=== PATIENT | female | born 1995 | race Caucasian/White ===

== ENCOUNTER 2018-07-25 22:05 | Emergency (ER) | payer BC ==
[2018-07-25] MEDS ORDERED: ONDANSETRON 4 MG/2 ML VIAL IVPUSH ONE ×2 (22:13→22:48)
[2018-07-25] MEDS ORDERED: SODIUM CHLORIDE 1,000 ML IV STA (22:13)
[2018-07-25] MEDS ORDERED: ONDANSETRON 4 MG/2 ML VIAL ONE (22:42)
[2018-07-25] MEDS ORDERED: ACETAMINOPHEN 1000 MG/100 ML VIAL (NON FORMULARY) IVPB ONE (22:42)
--- NOTE | 2018-07-25 22:48 | PDOC ---
History of Present Illness - General Chief Complaint: Seizure Stated Complaint: POSSIBLE SEIZURE Time Seen by Provider: 07/25/18 22:18 History Source: Patient Exam Limitations: No Limitations - History of Present Illness Initial Comments: 07/25/18 22:42 23 yo F with a history of depression presents to the emergency department s/p tonic clonic episode with LOC at approximately 9:20 pm. Per the patient, she was sitting in a high bar stool when she leaned back, cracked her back, accidentally hit her head against the bar top. Afterwards her friend the chanel stated she began having tonic clonic movements and fell off her chair and LOC for less than a minute. Prior to the LOC, the patient felt nauseous but denies the following antecedent symptoms: headache, visual changes, headache, vomiting, chest pain, SOB, and abdominal pain. After the fall, she states she is currently asymptomatic. Denies the following: fever, chills, hx of seizures, suicidal ideation, dysuria, hematuria, and diarrhea. Allergies: NKDA Social: Denies tobacco, alcohol, and substance abuse Meds: zoloft and welbutrin Past History - Past Medical History Allergies/Adverse Reactions: Allergies Allergy/AdvReac Type Severity Reaction Status Date / Time No Known Allergies Allergy Verified 07/25/18 22:45 Review of Systems - Review of Systems Able to Perform ROS?: Yes Is the patient limited [place]ian proficient: No Constitutional: No: Chills, Diaphoresis, Fever HEENTM: No: Eye Pain, Recent change in vision, Ear Pain, Nose Pain, Nose Congestion, Throat Pain Respiratory: No: Cough, Shortness of Breath, SOB with Exertion Cardiac (ROS): No: Chest Pain, Lightheadedness, Palpitations, Syncope, Chest Tightness ABD/GI: Yes: Nausea. No: Constipated, Diarrhea, Poor Fluid Intake, Rectal Bleeding, Vomiting, Tarry Stools : No: Burning, Dysuria, Discharge, Incontinence, Urgency Musculoskeletal: No: Back Pain, Gout, Joint Pain, Neck Pain Integumentary: Yes: Bruising (forehead). No: Erythema, Flushing, Lesions, Lumps Neurological: No: Headache, Numbness, Tingling, Tremors, Dizziness Psychiatric: No: Frequent Crying, Stressors, Change in Appetite Endocrine: No: Excessive Sweating Hematologic/Lymphatic: No: Anemia *Physical Exam - Physical Exam General Appearance: Yes: Nourished, Appropriately Dressed, Thin. No: Apparent Distress HEENT: positive: EOMI, DAVID, Normal ENT Inspection, Normal Voice, Symmetrical, TMs Normal, Pharynx Normal, Hearing Grossly Normal, Other (raised bruises consistent with fall 1x on left forehead and other on right forehead. larger on left. no contusions or depressions throughout the rest of the skull. no tenderness to palpation in the neck midline and no paravertebral tenderness. ). negative: Pale Conjunctivae, Scleral Icterus (R), Scleral Icterus (L), Muffled /Hoarse voice, Pharyngeal Erythema, Tonsillar Exudate, Tonsillar Erythema, Nasal Congestion, Sinus Tenderness, TM Bulging, TM Dull, TM Erythema, Excessive drooling Neck: positive: Trachea midline, Supple. negative: Tender, Lymphadenopathy (R) , Lymphadenopathy (L) Respiratory/Chest: positive: Lungs Clear, Normal Breath Sounds. negative: Chest Tender, Respiratory Distress, Accessory Muscle Use, Crackles, Rales, Rhonchi, Stridor Cardiovascular: positive: Regular Rhythm, Regular Rate, S1, S2. negative: Systolic Murmur Gastrointestinal/Abdominal: positive: Normal Bowel Sounds, Flat, Soft. negative : Tender, Protuberent, Distended, Rebound, Tenderness Lymphatic: negative: Adenopathy Musculoskeletal: positive: Normal Inspection. negative: CVA Tenderness, Decreased Range of Motion Extremity: positive: Normal Capillary Refill, Normal Inspection, Normal Range of Motion. negative: Tender, Swelling, Calf Tenderness Integumentary: positive: Normal Color, Dry, Warm. negative: Swelling, Ecchymosis Neurologic: positive: integration analyst II-XII NML intact, Fully Oriented, Alert, Normal Mood/ Affect, Normal Response, Motor Strength 5/5 ED Treatment Course - LABORATORY CBC & Chemistry Diagram: 07/25/18 22:40 07/25/18 22:38 Medical Decision Making - Medical Decision Making 07/25/18 23:02 23 yo F with a history of depression presents to the emergency department s/p tonic clonic episode with LOC at approximately 9:20 pm. Initial vitals: Initial Vital Signs Temp Pulse Resp BP Pulse Ox 98.1 F 71 19 102/71 97 07/25/18 22:05 07/25/18 22:05 07/25/18 22:05 07/25/18 22:05 07/25/18 22:05 Work up: patient stated she had not had a chance to have her drink before she had the syncopal event. the patient presents to the emergency department with bruises on her forehead, but denies headache and other symptomatic complaints. patient will be given fluids and zofran. the patient did not have slurred speech and neurological exam within normal limits. orders: cbc, cmp, ua, urine culture, ekg, ct head, cxr Laboratory Tests 07/25/18 07/25/18 07/25/18 22:38 22:38 22:40 WBC 10.1 H RBC 4.08 Hgb 13.6 Hct 39.1 MCV 95.9 MCH 33.3 MCHC 34.8 RDW 13.2 Plt Count 207 MPV 8.8 Absolute Neuts (auto) 6.7 Neutrophils % 66.1 Lymphocytes % 24.3 Monocytes % 8.3 Eosinophils % 0.5 Basophils % 0.8 Nucleated RBC % 0 Sodium 137 Potassium 4.2 Chloride 104 Carbon Dioxide 24 Anion Gap 9 BUN 10 Creatinine 0.5 L Creat Clearance w eGFR 151.58 Random Glucose 80 Calcium 8.8 Total Bilirubin 0.2 AST 18 ALT 16 Alkaline Phosphatase 64 Creatine Kinase 73 Troponin I < 0.02 Total Protein 6.9 Albumin 4.1 TSH 2.12 Serum , Qual Negative Urine Color Urine Appearance Urine pH Ur Specific [place] Urine Protein Urine Glucose (UA) Urine Ketones Urine Blood Urine Nitrite Urine Bilirubin Urine Urobilinogen Ur Leukocyte Esterase Opiates Screen Methadone Screen Barbiturate Screen Phencyclidine Screen Ur Amphetamines Screen MDMA (Ecstasy) Screen Benzodiazepines Screen Cocaine Screen U Marijuana (THC) Screen 07/25/18 07/25/18 22:45 22:49 WBC RBC Hgb Hct MCV MCH MCHC RDW Plt Count MPV Absolute Neuts (auto) Neutrophils % Lymphocytes % Monocytes % Eosinophils % Basophils % Nucleated RBC % Sodium Potassium Chloride Carbon Dioxide Anion Gap BUN Creatinine Creat Clearance w eGFR Random Glucose Calcium Total Bilirubin AST ALT Alkaline Phosphatase Creatine Kinase Troponin I Total Protein Albumin TSH Serum , Qual Urine Color Yellow Urine Appearance Cloudy Urine pH 5.5 Ur Specific [place] 1.030 Urine Protein Negative Urine Glucose (UA) Negative Urine Ketones Trace H Urine Blood Negative Urine Nitrite Negative Urine Bilirubin Negative Urine Urobilinogen 1.0 Ur Leukocyte Esterase Negative Opiates Screen Cancelled Methadone Screen Cancelled Barbiturate Screen Cancelled Phencyclidine Screen Cancelled Ur Amphetamines Screen Cancelled MDMA (Ecstasy) Screen Cancelled Benzodiazepines Screen Cancelled Cocaine Screen Cancelled U Marijuana (THC) Screen Cancelled CT head, cervical spine CT, and cxr pending. Patient is signed out to Dr. Miner. 07/25/18 23:51 07/25/18 23:51 07/26/18 00:04 *DC/Admit/Observation/Transfer Diagnosis at time of Disposition: Syncope Qualifiers: Syncope type: unspecified Qualified Code(s): R55 - Syncope and collapse - Discharge Dispostion Disposition: HOME Condition at time of disposition: Fair Decision to Admit order: No - Referrals Referrals: ON STAFF,NOT [Primary Care Provider] - [facility] [Provider Group] Kilo Gonzalez MD [Staff Physician] - Gonzalo Browning DO [Staff Physician] - - Patient Instructions Printed Discharge Instructions: DI for Syncope in Adults (Fainting), DI for Seizure Disorder -- Adult Additional Instructions: you were seen in the emergency department for your syncopal episode that you sustained today. please follow up with the neurologist referred to you in 1 week after discharge for follow up care and management. in addition, your frequent syncopal episodes in the past should be evaluated by the neurologist. please follow up with the boardinghouse keeper in 1 week after discharge for follow up care and management. in addition, you were referred a primary medical physician that you can establish care with. please return to the emergency department if you have worsening symptoms or new concerning symptoms such as loss of consciousness, fevers, neck stiffness, speech slurring, and focal neurological deficits. thank you. - Post Discharge Activity Forms/Work/School Notes: Back to Work
[2018-07-25 22:49] LABS: BASO % 0.8 % (0-2.0); EOS % 0.5 % (0-4.5); HEMATOCRIT 39.1 % (32.4-45.2); HEMOGLOBIN 13.6 GM/dL (10.7-15.3); LYMPH % 24.3 % (8-40); MCH 33.3 pg (25.7-33.7); MCHC 34.8 g/dl (32.0-36.0); MEAN CELL VOLUME 95.9 fl (80-96); MEAN PLT VOLUME 8.8 fl (7.5-11.1); MONO % 8.3 % (3.8-10.2); NEUT % 66.1 % (42.8-82.8); PLATELET COUNT 207 K/MM3 (134-434); RBC 4.08 M/mm3 (3.60-5.2); RDW 13.2 % (11.6-15.6); WHITE BLOOD COUNT 10.1 K/mm3 (4.0-10.0)
[2018-07-25 22:55] VITALS: BMI 20.1
[2018-07-25 22:57] LABS: PH,URINE 5.5 (5.0-8.0); URINE APPEARANCE CLOUDY; URINE BILIRUBIN NEGATIVE (NEGATIVE); URINE COLOR YELLOW; URINE GLUCOSE (UA) NEGATIVE (NEGATIVE); URINE KETONE TRACE (NEGATIVE); URINE LEUK ESTERASE NEGATIVE (NEGATIVE); URINE NITRITE NEGATIVE (NEGATIVE); URINE PROTEIN NEGATIVE (NEGATIVE)
--- NOTE | 2018-07-25 23:03 | PDOC ---
Documentation entered by La Yap SCRIBE, acting as scribe for Nishi Nolan DO. Nishi Nolan DO: This documentation has been prepared by the [place] Daisy, SCRIBE, under my direction and personally reviewed by me in its entirety. I confirm that the documentation accurately reflects all work , treatment, procedures, and medical decision making performed by me. Attending Attestation - Resident Resident Name: EvonneTripp - ED Attending Attestation I have performed the following: I have examined & evaluated the patient, The case was reviewed & discussed with the resident, I agree w/resident's findings & plan - HPI HPI: 07/25/18 22:27 The patient is 23 year old female with a PMH of depression who presents for evaluation of witnessed tonic clonic movements at approximately 9:20PM today. Patient was sitting on a bar stool when she tried to crack her back and then went forward. Patient admits to injuring her head on the bar and friend at bedside witnessed tonic clonic movements. Patient subsequently fell off the stool and is unclear whether she injured her head again. Patient reports having syncopal episodes in the past when she had not eaten in a long time. She has not followed up with neurology in the past for these syncopal episodes. The patient denies weakness/numbness/tingling, chest pain, shortness of breath, headache and dizziness. Denies fever, chills, nausea, vomit, diarrhea and constipation. Denies dysuria, frequency, urgency and hematuria. Allergies: NKDA - Physicial Exam PE: 07/25/18 22:35 Agrees with resident's exam. - Medical Decision Making 07/25/18 23:01 23-year-old female status post possible seizure with resulting trauma to the forehead Patient is awake alert complaining only of localized headache Plan for CT scan of the head and cervical spine with probable discharge home It was discussed at length with the patient that she will likely require further evaluation by both neurology and cardiology to determine the exact cause of her symptoms She is also agreed not to drive until further evaluation is performed.
[2018-07-25 23:47] LABS: ALBUMIN 4.1 g/dl (3.4-5.0); ALK PHOS 64 U/L (45-117); ANION GAP 9 MMOL/L (8-16); BILIRUBIN,TOTAL 0.2 mg/dL (0.2-1); BLOOD UREA NITROGEN 10 mg/dL (7-18); CALCIUM 8.8 mg/dL (8.5-10.1); CHLORIDE 104 mmol/L (98-107); CO2 24 mmol/L (21-32); CREATININE 0.5 mg/dL (0.55-1.3); GLUCOSE,RANDOM 80 mg/dL (74-106); POTASSIUM 4.2 mmol/L (3.5-5.1); SGOT/AST 18 U/L (15-37); SGPT/ALT 16 U/L (13-61); SODIUM 137 mmol/L (136-145); TOT PROT 6.9 g/dl (6.4-8.2)
[2018-07-26] MEDS ORDERED: ACETAMINOPHEN 1000 MG/100 ML VIAL (NON FORMULARY) IVPB ONE (00:20)
[2018-07-26] MEDS ORDERED: ACETAMINOPHEN INJECTION 100 ML IVPB ONE (00:21)
[2018-07-26 01:02] VITALS: BP 110/76; PULSE 65; TEMP 98.7
--- NOTE | 2018-07-26 12:29 | EKG ---
Test Reason : Blood Pressure : / mmHG Vent. Rate : 073 BPM Atrial Rate : 073 BPM P-R Int : 110 ms QRS Dur : 082 ms QT Int : 388 ms P-R-T Axes : -05 075 057 degrees QTc Int : 427 ms NORMAL SINUS RHYTHM RSR' OR QR PATTERN IN V1 SUGGESTS RIGHT VENTRICULAR CONDUCTION DELAY OTHERWISE NORMAL ECG Confirmed by MD MUNIR, CONY ([id number]) on 07/26/2018 12:29:01 PM Referred By: Confirmed By:CONY AMARAL MD
== END 2018-07-26 01:02 | disposition home or self-care (01) ==
LOC: JER 22:05
PROC: 3E0337Z Introduction of Electrolytic and Water Balance Substance into Peripheral Vein, Percutaneous Approach (ICD-10-PCS; principal; 2018-07-25)
PROC: 3E033GC Introduction of Other Therapeutic Substance into Peripheral Vein, Percutaneous Approach (ICD-10-PCS; 2018-07-25)
PROC: 3E033GC Introduction of Other Therapeutic Substance into Peripheral Vein, Percutaneous Approach (ICD-10-PCS; 2018-07-25)
DX: R55 Syncope and collapse (principal); S09.8XXA Other specified injuries of head, initial encounter; W07.XXXA Fall from chair, initial encounter; Y93.89 Activity, other specified; Y92.59 Other trade areas as the place of occurrence of the external cause; Y99.8 Other external cause status
CPT/HCPCS: 36415; 70450-TC; 71046-TC-FY; 72125-TC; 80053; 81003; 82550; 84443; 84484; 84703; 85025; 87086; 93005; 93010; 99283-25; J0131; J7030